=== PATIENT | male | born 1960 | race Caucasian/White ===

== ENCOUNTER 2023-02-11 15:08 | Inpatient (IN) | payer MEDICAID ==
[~2023-02-11] VITALS: Ht 165.1 cm; Wt 93.4 kg
[2023-02-11 15:41] LABS: BASOPHILS % 0.8 % (0.0-2.0); EOSINOPHILS % 6.4 % (0.0-5.0); HEMATOCRIT. 44.2 % (42.0-52.0); HEMOGLOBIN. 15.3 g/dL (14.0-18.0); MEAN CORPUSCULAR HEMOGLOBIN 33.2 pg (28.0-32.0); MEAN CORPUSCULAR VOLUME 95.7 fL (80.0-94.0); MEAN PLATELET VOLUME 8.8 fl (7.4-10.4); MONOCYTES % 12.7 % (2.0-8.0); NEUTROPHILS % 47.1 % (40.0-76.0); PLATELET 252 x1000/uL (130-400); RED BLOOD CELL COUNT 4.62 mill/uL (4.7-6.1); RED CELL DISTRIBUTION WIDTH 13.3 % (11.6-14.6)
[2023-02-11 15:53] LABS: CHLORIDE 104 mEq/L (98-107)
[2023-02-11] MEDS ORDERED: POTASSIUM CHLORIDE 20MEQ TABLET SR PO ONE (18:45)
[2023-02-11 21:24] LABS: CLARITY URINE CLEAR (CLEAR); COLOR URINE DARK YELLOW (YELLOW); KETONES URINE 2+ (NEGATIVE); LEUKOCYTE ESTERASE URINE 1+ (NEGATIVE); NITRITE URINE NEGATIVE (NEGATIVE); OCCULT BLOOD URINE NEGATIVE (NEGATIVE); PH URINE 5.5 (4.5-8.0); PROTEIN URINE 1+ (NEGATIVE)
[2023-02-11] MEDS ORDERED: NAPR-677 MT (22:18)
[2023-02-11] MEDS ORDERED: LEVO750T68 MT (22:18)
[2023-02-12] MEDS ORDERED: MAGNESIUM/ALUMINUM HYDROXIDE/SIMETHICONE 30ML UDC PO PRN (03:00)
[2023-02-12] MEDS ORDERED: DOCUSATE SODIUM 100MG CAPSULE PO PRN (03:00)
[2023-02-12] MEDS ORDERED: ACETAMINOPHEN 325MG TABLET PO PRN (03:00)
[2023-02-12] MEDS ORDERED: GUAIFENESIN 200MG/10ML SUGAR FREE UDC PO PRN (03:00)
[2023-02-12] MEDS ORDERED: IPRATROPIUM/ALBUTEROL 0.5-3(2.5)MG/3ML NEB HHN PRN (03:00)
[2023-02-12] MEDS ORDERED: NALOXONE HCL 0.4MG/ML VIAL IV PRN (03:15)
[2023-02-12] MEDS ORDERED: DEXTROSE 50% WATER 50ML SYRINGE IV PRN (03:30)
[2023-02-12] MEDS ORDERED: CEFTRIAXONE 1GM PREMIX 50 ML IV NR (03:30)
[2023-02-12] MEDS: SORBITOL 70% SOLN 30ML NG SCH ×2 (04:00→18:18)
[2023-02-12] MEDS: BLOOD SUGAR DIAGNOSTIC STRIP TEST SCH ×4 (06:30→21:00)
[2023-02-12] MEDS: INSULIN LISPRO 100 UNITS/ML SUBCUT SCH ×4 (07:00→21:00)
[2023-02-12 07:26] LABS: BASOPHILS % 0.5 % (0.0-2.0); EOSINOPHILS % 7.6 % (0.0-5.0); HEMATOCRIT. 41.1 % (42.0-52.0); MEAN CORPUSCULAR HEMOGLOBIN 32.7 pg (28.0-32.0); MEAN CORPUSCULAR VOLUME 96.3 fL (80.0-94.0); MEAN PLATELET VOLUME 8.4 fl (7.4-10.4); MONOCYTES % 14.8 % (2.0-8.0); NEUTROPHILS % 47.1 % (40.0-76.0); PLATELET 211 x1000/uL (130-400); RED BLOOD CELL COUNT 4.27 mill/uL (4.7-6.1); RED CELL DISTRIBUTION WIDTH 13.4 % (11.6-14.6)
[2023-02-12 07:41] LABS: CHLORIDE 107 mEq/L (98-107)
[2023-02-12 08:00] VITALS: BP 128/66
[2023-02-12] MEDS ORDERED: POTASSIUM CHLORIDE 20MEQ TABLET SR PO NR (08:00)
[2023-02-12 08:02] LABS: HDL CHOLESTEROL 19 mg/dL (40-59); LDL CHOLESTEROL 108 mg/dL (5-100); T4 FREE 0.93 ng/dL (0.76-1.46)
[2023-02-12 08:14] LABS: FOLIC ACID (FOLATE) SERUM 9.9 ng/mL (>5.38)
[2023-02-12] MEDS ORDERED: ENOXAPARIN 40MG/0.4ML SYR SUBCUT SCH (09:00)
[2023-02-12] MEDS ORDERED: POTASSIUM CHLORIDE 20MEQ/PACKET PO NR (09:15)
[2023-02-12] MEDS: PANTOPRAZOLE SODIUM 40 MG/VIAL IV SCH (09:17)
[2023-02-12] MEDS: ONDANSETRON HCL 4MG/2ML INJ IV PRN (09:18)
[2023-02-12 10:45] VITALS: BP 128/66
[2023-02-12 12:00] VITALS: BP 121/61
[2023-02-12 12:50] LABS: *AMPHETAMINES SCREEN URINE NEGATIVE (NEGATIVE); *BARBITURATES SCREEN URINE NEGATIVE (NEGATIVE); *BENZODIAZEPINES SCREEN URINE NEGATIVE (NEGATIVE); *COCAINE SCREEN URINE NEGATIVE (NEGATIVE); CANNABINOID URINE SCREEN NEGATIVE (NEGATIVE); METHADONE URINE SCREEN NEGATIVE (NEGATIVE); OPIATES URINE SCREEN NEGATIVE (NEGATIVE); PHENCYCLIDINE URINE SCREEN NEGATIVE (NEGATIVE)
[2023-02-12] MEDS ORDERED: DEXT 5%/0.45% NACL 1000ML 1,000 ML IV SCH (13:15)
[2023-02-12 16:00] VITALS: BP 126/74
[2023-02-12] MEDS: POTASSIUM CHLORIDE INJ 30 MEQ in DEXT 5%/0.45% NACL 1000ML 1,000 ML IV SCH (18:05)
[2023-02-12 18:13] LABS: TOTAL IRON BINDING CAPACITY 318 ug/dL (250-450)
[2023-02-12 18:28] LABS: CARCINO EMBRYONIC ANTIGEN 2.1 ng/ml
[2023-02-12 20:00] VITALS: BP_SYST 104; BP_SYST 133; BP_DIAS 57; BP_DIAS 69
[2023-02-12] MEDS: ENOXAPARIN 30MG/0.3ML SYR SUBCUT SCH (21:25)
[2023-02-13] VITALS: BP_SYST 104; BP_SYST 109; BP_DIAS 52; BP_DIAS 63
[2023-02-13] MEDS: SORBITOL 70% SOLN 30ML NG SCH (00:08)
[2023-02-13] MEDS: ONDANSETRON HCL 4MG/2ML INJ IV PRN (01:00)
[2023-02-13 04:00] VITALS: BP 106/62
[2023-02-13] MEDS ORDERED: SORBITOL 70% SOLN 30ML NG SCH ×2 (04:15→04:30)
[2023-02-13] MEDS: BLOOD SUGAR DIAGNOSTIC STRIP TEST SCH ×4 (05:43→21:00)
[2023-02-13] MEDS: INSULIN LISPRO 100 UNITS/ML SUBCUT SCH ×4 (06:11→21:00)
[2023-02-13 07:14] LABS: INR 1.2; PROTHROMBIN TIME 12.4 sec (9.6-11.0)
[2023-02-13 07:17] LABS: HEMATOCRIT. 48.1 % (42.0-52.0); HEMOGLOBIN. 16.4 g/dL (14.0-18.0); MEAN CORPUSCULAR HEMOGLOBIN 33.2 pg (28.0-32.0); MEAN CORPUSCULAR VOLUME 97.2 fL (80.0-94.0); MEAN PLATELET VOLUME 9.7 fl (7.4-10.4); PLATELET 260 x1000/uL (130-400); RED BLOOD CELL COUNT 4.95 mill/uL (4.7-6.1); RED CELL DISTRIBUTION WIDTH 13.7 % (11.6-14.6)
[2023-02-13 07:58] LABS: CHLORIDE 112 mEq/L (98-107)
[2023-02-13 08:00] VITALS: BP 111/72
[2023-02-13] MEDS: PANTOPRAZOLE SODIUM 40 MG/VIAL IV SCH (09:12)
[2023-02-13] MEDS: POTASSIUM CHLORIDE INJ 30 MEQ in DEXT 5%/0.45% NACL 1000ML 1,000 ML IV SCH ×2 (09:12→21:59)
[2023-02-13] MEDS: CEFTRIAXONE 1,000 MG in DEXTROSE 5% WATER 50 ML IV SCH (09:12)
[2023-02-13] MEDS: ENOXAPARIN 30MG/0.3ML SYR SUBCUT SCH ×2 (09:32→21:59)
[2023-02-13 12:00] VITALS: BP 125/71
[2023-02-13] MEDS: HYDROCODONE/ACETAMINOPHEN 5/325MG TABLET PO PRN (13:32)
[2023-02-13 14:07] LABS: PLATELET ESTIMATE NORMAL
[2023-02-13] MEDS ORDERED: LIDOCAINE HCL 1% 10 MG/ML 10ML VIAL ONE (16:02)
[2023-02-13] MEDS ORDERED: PROPOFOL 200MG/20ML VIAL IV ONE ×2 (16:02)
[2023-02-13] MEDS ORDERED: MIDAZOLAM HCL 2 MG/2 ML VIAL ONE ×2 (16:02→16:42)
[2023-02-13] MEDS ORDERED: SODIUM CHLORIDE 0.9% 10ML VIAL ONE (16:07)
[2023-02-13] MEDS ORDERED: PHENYLEPHRINE HCL 10 MG/ML 1ML (IV VIAL) IV ONE (16:08)
[2023-02-13 20:00] VITALS: BP 114/70
[2023-02-13 21:36] LABS: HEPATITIS B SURFACE ANTIGEN NEGATIVE
[2023-02-14] VITALS: BP 101/49
[2023-02-14 04:00] VITALS: BP 114/60
[2023-02-14] MEDS: INSULIN LISPRO 100 UNITS/ML SUBCUT SCH ×4 (06:33→21:00)
[2023-02-14] MEDS: BLOOD SUGAR DIAGNOSTIC STRIP TEST SCH ×4 (06:33→21:00)
[2023-02-14 06:57] LABS: HEMATOCRIT. 42.2 % (42.0-52.0); HEMOGLOBIN. 14.4 g/dL (14.0-18.0); MEAN CORPUSCULAR HEMOGLOBIN 33.1 pg (28.0-32.0); MEAN CORPUSCULAR VOLUME 97.1 fL (80.0-94.0); MEAN PLATELET VOLUME 9.2 fl (7.4-10.4); PLATELET 215 x1000/uL (130-400); RED BLOOD CELL COUNT 4.35 mill/uL (4.7-6.1); RED CELL DISTRIBUTION WIDTH 13.8 % (11.6-14.6)
[2023-02-14 07:07] LABS: CHLORIDE 114 mEq/L (98-107)
[2023-02-14 08:00] VITALS: BP 94/53
[2023-02-14] MEDS ORDERED: POTASSIUM CHLORIDE 20MEQ TABLET SR PO NR (08:00)
[2023-02-14] MEDS: PANTOPRAZOLE SODIUM 40 MG/VIAL IV SCH (08:13)
[2023-02-14] MEDS: CEFTRIAXONE 1,000 MG in DEXTROSE 5% WATER 50 ML IV SCH (08:14)
[2023-02-14] MEDS: ENOXAPARIN 30MG/0.3ML SYR SUBCUT SCH ×2 (08:14→21:00)
[2023-02-14] MEDS: POTASSIUM CHLORIDE INJ 30 MEQ in DEXT 5%/0.45% NACL 1000ML 1,000 ML IV SCH ×2 (08:14→23:12)
[2023-02-14 12:00] VITALS: BP 112/81
[2023-02-14 13:09] LABS: PLATELET ESTIMATE NORMAL
[2023-02-14] MEDS: HYDROCODONE/ACETAMINOPHEN 5/325MG TABLET PO PRN (13:11)
[2023-02-14 16:00] VITALS: BP 110/45
[2023-02-14] MEDS: DOCUSATE SODIUM 250MG CAPSULE PO SCH (17:07)
[2023-02-14] MEDS: METOCLOPRAMIDE HCL 10MG/2ML VIAL IV SCH (17:07)
[2023-02-14 20:00] VITALS: BP 96/44
[2023-02-15] VITALS: BP 111/48
[2023-02-15] MEDS: METOCLOPRAMIDE HCL 10MG/2ML VIAL IV SCH ×3 (00:38→12:45)
[2023-02-15 04:00] VITALS: BP 96/51
[2023-02-15 04:12] LABS: OVA & PARASITE EXAM Final report (.)
[2023-02-15] MEDS: INSULIN LISPRO 100 UNITS/ML SUBCUT SCH ×2 (06:36→12:00)
[2023-02-15] MEDS: BLOOD SUGAR DIAGNOSTIC STRIP TEST SCH ×2 (06:38→11:59)
[2023-02-15 07:11] LABS: BASOPHILS % 0.6 % (0.0-2.0); EOSINOPHILS % 8.3 % (0.0-5.0); HEMATOCRIT. 39.6 % (42.0-52.0); HEMOGLOBIN. 13.6 g/dL (14.0-18.0); LYMPHOCYTES % 32.2 % (20.0-50.0); MEAN CORPUSCULAR HEMOGLOBIN 33.1 pg (28.0-32.0); MEAN CORPUSCULAR VOLUME 96.6 fL (80.0-94.0); MEAN PLATELET VOLUME 9.1 fl (7.4-10.4); MONOCYTES % 14.5 % (2.0-8.0); NEUTROPHILS % 44.4 % (40.0-76.0); PLATELET 201 x1000/uL (130-400); RED CELL DISTRIBUTION WIDTH 13.5 % (11.6-14.6)
[2023-02-15 07:35] LABS: CHLORIDE 111 mEq/L (98-107)
[2023-02-15 08:00] VITALS: BP 119/57
[2023-02-15] MEDS ORDERED: POTASSIUM CHLORIDE 20MEQ TABLET SR PO NR (08:15)
[2023-02-15] MEDS: DOCUSATE SODIUM 250MG CAPSULE PO SCH (09:45)
[2023-02-15] MEDS: PANTOPRAZOLE SODIUM 40 MG/VIAL IV SCH (09:45)
[2023-02-15] MEDS: CEFTRIAXONE 1,000 MG in DEXTROSE 5% WATER 50 ML IV SCH (09:46)
[2023-02-15] MEDS: ENOXAPARIN 30MG/0.3ML SYR SUBCUT SCH (09:46)
[2023-02-15] MEDS ORDERED: BARIUM SULFATE 176 GM SUSP.RECON ONE (10:29)
[2023-02-15] MEDS ORDERED: EZ-HD SUSPENSION(BARIUM SULFATE 340GM) PO ONE (10:29)
[2023-02-15] MEDS ORDERED: SIMETHICONE/SOD BICARB/CIT AC 1 EACH GRAN.EF.PK ONE (10:30)
[2023-02-15 12:00] VITALS: BP 143/84
[2023-02-15] MEDS: POTASSIUM CHLORIDE INJ 30 MEQ in DEXT 5%/0.45% NACL 1000ML 1,000 ML IV SCH (12:45)
[2023-02-15] MEDS ORDERED: METO10TA3 MT (13:12)
[2023-02-15] MEDS ORDERED: MIRT-89 PO (13:12)
[2023-02-15] MEDS ORDERED: ONDA4TAB11 SL (13:16)
[2023-02-15 13:27] VITALS: BP 120/75
[2023-02-15 15:57] VITALS: BP 145/80
[2023-02-15] MEDS ORDERED: MIRTAZAPINE 15MG TABLET PO SCH (21:00)
[2023-02-16 04:00] VITALS: BP 111/72
== END 2023-02-15 16:05 | disposition home or self-care (01) | DRG 48 ==
LOC: ER 15:08 → MICUSO 02-12 00:24 → 7EST 02-12 08:06 → 8WST 02-13 17:53
PROVIDERS: ADMIT Internal Medicine; ATTEND Internal Medicine
PROC: 0DB78ZX Excision of Stomach, Pylorus, Via Natural or Artificial Opening Endoscopic, Diagnostic (ICD-10-PCS; principal; 2023-02-13)
PROC: 0DJD8ZZ Inspection of Lower Intestinal Tract, Via Natural or Artificial Opening Endoscopic (ICD-10-PCS; 2023-02-13)
DX: E11.43 Type 2 diabetes mellitus with diabetic autonomic (poly)neuropathy (principal); K90.49 Malabsorption due to intolerance, not elsewhere classified; K76.0 Fatty (change of) liver, not elsewhere classified; D75.89 Other specified diseases of blood and blood-forming organs; E11.65 Type 2 diabetes mellitus with hyperglycemia; E87.6 Hypokalemia; F32.9 Major depressive disorder, single episode, unspecified; K29.70 Gastritis, unspecified, without bleeding; K31.84 Gastroparesis; K64.8 Other hemorrhoids; N39.0 Urinary tract infection, site not specified; M17.11 Unilateral primary osteoarthritis, right knee; R74.01 Elevation of levels of liver transaminase levels; R13.10 Dysphagia, unspecified; Z79.4 Long term (current) use of insulin
CPT/HCPCS: 36415; 71045; 73562; 74176; 74220; 76700; 76870; 78265; 80048; 80053; 80061; 80076; 80305; 81003; 82105; 82270; 82378; 82607; 82728; 82746; 82962; 82977; 83036; 83540; 83550; 83735; 83880; 84153; 84439; 84443; 84484; 85025; 85044; 85379; 86301; 86705; 86709; 86803; 87015; 87045; 87177; 87209; 87340; 87426; 87427; 87449; 88305; 89055; 93005; 93976; 97162; 99285; C9113; J0696; J1650; J1815; J2250; J2370; J2405; J2704; J2765; J3480; J3490; J7060; J7517; G0103